=== PATIENT | female | born 1930 | race Caucasian/White ===

== ENCOUNTER → 2016-10-13 | Outpatient (CLI) | payer OTHER ==
[~2016-10-13] MED LIST: ALPR0.25 PO; ALPR0.254 PO; CIPR500T8 PO; DABI75CA3 PO; LEVO750T26 PO; LEVO88TA4 PO; LOSA100T6 PO; LOSA50TA6 PO; METO100T3 PO; METO50TA82 PO; METR500T4 PO; OMEP-110 PO; RANI150T4 PO; SIMV20TA3 PO; [UNRECOGNIZED DRUG - CODE] PO
== END | disposition home or self-care (01) ==
LOC: CFH 12:40
PROVIDERS: ATTEND Internal Medicine Cardiovascular Disease
DX: I50.20 Unspecified systolic (congestive) heart failure (principal); I49.5 Sick sinus syndrome; I48.2 Chronic atrial fibrillation; I08.3 Combined rheumatic disorders of mitral, aortic and tricuspid valves; I37.1 Nonrheumatic pulmonary valve insufficiency; Z79.01 Long term (current) use of anticoagulants; Z95.0 Presence of cardiac pacemaker
CPT/HCPCS: 93306

== ENCOUNTER 2017-01-06 06:45 | Day surgery (SDC) | payer OTHER ==
[2017-01-05 11:31] VITALS: BP 183/103
[2017-01-05 12:22] LABS: BLOOD UREA NITROGEN 20 mg/dL (7-18)
[~2017-01-06] VITALS: Ht 165.1 cm; Wt 71.4 kg
[~2017-01-06 06:45] MED LIST changes: +ACET-76 PO; +CALC300T42 PO; +DOCU100C PO; +FLUT9.9S NS; +LEVO75TA5 PO; +MESA0.37 PO; +MULT-516 PO; +NYST60PO TD; +ONDA-39 PO; +PSYL575P16 PO; +SACU1TAB7 PO
[2017-01-06] MEDS ORDERED: SODIUM CHLORIDE 0.9% 1,000 ML IV SCH (07:04)
[2017-01-06] MEDS ORDERED: FENTANYL PF 100 MCG/2ML ONE (08:20)
[2017-01-06] MEDS ORDERED: LIDOCAINE 2%, 20ML ONE (08:20)
[2017-01-06] MEDS ORDERED: CEFAZOLIN PMX 1GM/50ML 50 ML ONE (08:20)
[2017-01-06] MEDS ORDERED: MIDAZOLAM 1 MG/ML, 5ML ONE (08:20)
[2017-01-06] MEDS ORDERED: CEFAZOLIN 1,000 MG ONE (08:20)
[2017-01-06] MEDS ORDERED: OXYcodone/APAP 5/325MG TABLET PO PRN (10:00)
[2017-01-06] MEDS ORDERED: DOXY100C15 PO (10:05)
== END 2017-01-06 11:30 | disposition home or self-care (01) ==
LOC: CACL 06:45
PROVIDERS: ATTEND Internal Medicine Cardiovascular Disease
DX: Z45.010 Encounter for checking and testing of cardiac pacemaker pulse generator [battery] (principal); Z88.6 Allergy status to analgesic agent; I48.91 Unspecified atrial fibrillation; Z79.01 Long term (current) use of anticoagulants; I11.0 Hypertensive heart disease with heart failure; I50.21 Acute systolic (congestive) heart failure; M19.90 Unspecified osteoarthritis, unspecified site; K21.9 Gastro-esophageal reflux disease without esophagitis; E78.5 Hyperlipidemia, unspecified; M85.80 Other specified disorders of bone density and structure, unspecified site; I45.9 Conduction disorder, unspecified; Z87.891 Personal history of nicotine dependence
CPT/HCPCS: 33228; 36415; 80048; 85025; 85610; 93005; 99156; C1785; J0690; J2250; J3010; J3490

== ENCOUNTER 2018-12-11 08:22 | Emergency (ER) | payer MEDICARE, OTHER ==
[~2018-12-11] VITALS: Ht 165.1 cm; Wt 64.0 kg
[~2018-12-11 08:22] MED LIST changes: +ACET-1751 PO; +DOCU-180 PO; -DOCU100C PO; +DOXY100C15 PO; +LOSA100T14 PO; -LOSA100T6 PO; +LOSA50TA14 PO; -LOSA50TA6 PO; -MESA0.37 PO; +MESA0.372 PO; -METO100T3 PO; +METO100T7 PO; +METR-90 PO; -METR500T4 PO; -ONDA-39 PO; +ONDA4TAB12 PO; -[UNRECOGNIZED DRUG - CODE] PO
--- NOTE | 2018-12-11 08:53 | NUR ---
PATIENT MONITOR ESTABLISHED, PROVIDER NARESH IN ROOM WITH PATIENT AND SON
[2018-12-11] MEDS ORDERED: ONDANSETRON 2MG/ML, 2ML IVPush ONE (09:00)
[2018-12-11] MEDS ORDERED: SODIUM CHLORIDE FLUSH 10ML SYR IVF ONE (09:00)
[2018-12-11] MEDS ORDERED: ONDANSETRON 2MG/ML, 2ML ONE (09:10)
--- NOTE | 2018-12-11 09:27 | NUR ---
WC TO BR. PATIENT ASSISTED BY SON, UNABLE TO COLLECT UA AT THIS TIME. ASSISTED FROM BR TO ROOM, MONITOR RE-ESTABLISHED. LAB AT BS. PATIENT AWARE OF UA NEED
--- NOTE | 2018-12-11 09:39 | NUR ---
CT WAITING ON LAB RESULTS TO PERFORM EXAM.
[2018-12-11 09:41] LABS: BASOPHILS # (AUTO) 0.02 x10^3/uL (0-0.1); BASOPHILS % (AUTO) 0 % (0-1); EOSINOPHILS # (AUTO) 0.05 x10^3/uL (0-0.4); EOSINOPHILS % (AUTO) 1 % (1-7); LYMPHOCYTES # (AUTO) 1.01 x10^3/uL (1-3.4); LYMPHOCYTES % (AUTO) 20 % (22-44); MD NO; MEAN CORPUSCULAR HEMOGLOBIN 31.8 pg (27.0-34.8); MEAN CORPUSCULAR HGB CONC 31.9 g/dL (32.4-35.8); MEAN CORPUSCULAR VOLUME 99.6 fL (80-100); MEAN PLATELET VOLUME 7.9 fL (7.4-10.4); MONOCYTES # (AUTO) 0.37 x10^3/uL (0.2-0.8); MONOCYTES % (AUTO) 7 % (2-9); NEUTROPHILS # (AUTO) 3.63 x10^3/uL (1.8-6.8); NEUTROPHILS % (AUTO) 71 % (42-75); PLATELET COUNT 162 x10^3/uL (130-400); RED CELL DISTRIBUTION WIDTH 13.1 % (9.6-15.2)
[2018-12-11 09:52] LABS: INTERNATIONAL NORMALIZED RATIO 1.15 (0.93-1.1)
[2018-12-11 09:53] LABS: ALANINE AMINOTRANSFERASE 24 U/L (12-78); ALBUMIN 3.6 g/dL (3.4-5.0); ANION GAP 8 mmol/L (5-15); CALCIUM 8.8 mg/dL (8.5-10.1); CHLORIDE 113 mmol/L (98-107); CREATININE 0.98 mg/dL (0.55-1.02)
[2018-12-11 09:58] LABS: ALKALINE PHOSPHATASE 65 U/L (45-117); BILIRUBIN,TOTAL 0.9 mg/dL (0.2-1.0); FREE T4 (FREE THYROXINE) 1.58 ng/dL (0.76-1.46); TOTAL PROTEIN 6.9 g/dL (6.4-8.2); TROPONIN I < 0.015 ng/mL (0.000-0.045)
[2018-12-11] MEDS ORDERED: OMNIPAQUE 350 MG/ML, 100ML BOTTLE ONE (10:16)
--- NOTE | 2018-12-11 10:29 | NUR ---
Mini-cath ua obtained. Awaiting all results. Patient to and from CT scan.
[2018-12-11 10:46] LABS: MICROSCOPIC NOT IND
[2018-12-11 10:50] LABS: CULTURE INDICATED? NO
--- NOTE | 2018-12-11 10:58 | NUR ---
PATIENT IN RECHECK
[2018-12-11 11:29] VITALS: BP 146/99
== END 2018-12-11 11:39 | disposition home or self-care (01) ==
LOC: ED 09:55
DX: R11.0 Nausea (principal); R10.84 Generalized abdominal pain; I10 Essential (primary) hypertension; E78.5 Hyperlipidemia, unspecified; K21.9 Gastro-esophageal reflux disease without esophagitis; I11.0 Hypertensive heart disease with heart failure; I50.9 Heart failure, unspecified; Z87.891 Personal history of nicotine dependence; Z90.49 Acquired absence of other specified parts of digestive tract; Z90.710 Acquired absence of both cervix and uterus; Z79.899 Other long term (current) drug therapy; Z88.8 Allergy status to other drugs, medicaments and biological substances
CPT/HCPCS: 36415; 71046; 74177; 80053; 81003; 83690; 84439; 84443; 84484; 85025; 85610; 85730; 93005; 96374; 99284; J2405; Q9967